=== PATIENT | male | born 1930 | race African-American/Black ===

== ENCOUNTER 2016-09-16 12:19 | Emergency (ER) | payer OTHER, MEDICARE, MEDICAID ==
[2016-09-16 12:54] VITALS: BP 128/49
--- NOTE | 2016-09-16 13:13 | EDM.PDOC ---
ED HPI GENERAL MEDICAL PROBLEM - General Chief Complaint: Lower Extremity Injury/Pain Stated Complaint: SENT [place] KNOCKED OVER BY HORSE Time Seen by Provider: 09/16/16 13:00 Source of Information: Reports: Patient History Limitations: Reports: No Limitations - History of Present Illness INITIAL COMMENTS - FREE TEXT/NARRATIVE: This 86 yo male patient was sent to the ED from the [place] (Dr. Nino Catalan from the [facility]) due to being run over by a horse. The patient reports he was feeding the horses when 1 of the horses ran over the patient on Tuesday. The patient has pain in his left forearm, left foot, left ankle and right scapula. The patient reports he has been taking Tylenol with little to no symptom relief. Onset Date: 09/14/16 Duration: Constant Location: Reports: Upper Extremity, Left, Upper Extremity, Right, Lower Extremity, Left Quality: Reports: Ache, Dull Severity: Moderate Improves with: Reports: None Worsens with: Reports: None Context: Reports: Trauma Associated Symptoms: Reports: No Other Symptoms Left Feet Pain Score (Numeric/FACES): 10 - Related Data Allergies Allergy/AdvReac Type Severity Reaction Status Date / Time gabapentin Allergy Cannot Verified 09/16/16 13:46 Remember levofloxacin [From Levaquin] Allergy Cannot Verified 09/16/16 13:46 Remember lovastatin Allergy Cannot Verified 09/16/16 13:46 Remember phenazopyridine Allergy Cannot Verified 09/16/16 13:46 [From Pyridium] Remember Home Meds: Home Meds Aspirin 81 mg PO BRK 09/16/16 [History] Clopidogrel Bisulfate [Clopidogrel] 75 mg PO DAILY 09/16/16 [History] Furosemide 40 mg PO DAILY 09/16/16 [History] Lisinopril 40 mg PO DAILY 09/16/16 [History] Loratadine 10 mg PO DAILY 09/16/16 [History] Miconazole [Miconazole 2% Crm] 1 applic TOP BID 09/16/16 [History] Multivitamin with Minerals [Hair, Skin and Nails] 1 tab PO DAILY 09/16/16 [ History] Pantoprazole Sodium 40 mg PO DAILY 09/16/16 [History] Triamcinolone Acetonide [Triamcinolone Acetonide 0.1% Oint] 1 applic TOP PRN [History] guaiFENesin [Mucus Relief] 600 mg PO BID 09/16/16 [History] Review of Systems - Review of Systems Review Of Systems: ROS reveals no pertinent complaints other than HPI. ED EXAM, GENERAL - Physical Exam Exam: See Below Exam Limited By: No Limitations General Appearance: Alert, WD/WN, Moderate Distress Eye Exam: Bilateral Eye: EOMI, Normal Inspection, PERRL Ears: Normal External Exam, Normal Canal, Hearing Grossly Normal, Normal TMs Nose: Normal Inspection Throat/Mouth: Normal Inspection, Normal Lips, Normal Teeth, Normal Gums, Normal Oropharynx, Normal Voice, No Airway Compromise Head: Atraumatic, Normocephalic Neck: Normal Inspection, Supple, Non-Tender, Full Range of Motion Respiratory/Chest: No Respiratory Distress, Lungs Clear, Normal Breath Sounds, No Accessory Muscle Use, Chest Non-Tender Cardiovascular: Normal Peripheral Pulses, Regular Rate, Rhythm, No Edema, No Gallop, No JVD, No Murmur, No Rub GI/Abdominal: Normal Bowel Sounds, Soft, Non-Tender, No Organomegaly, No Distention, No Abnormal Bruit, No Mass (Male) Exam: Deferred Rectal (Males) Exam: Deferred Back Exam: Normal Inspection, Full Range of Motion, NT Extremities: Arm Pain (left forearm and right posterior shoulder), Leg Pain ( left ankle, left foot) Neurological: Alert, Oriented, CN II-XII Intact, Normal Cognition, Abnormal Gait (due to left foot/ankle pain) Psychiatric: Normal Affect, Normal Mood Skin Exam: Warm, Dry, Intact, Normal Color, No Rash Lymphatic: No Adenopathy Course - Vital Signs Last Recorded V/S: Last Vital Signs Temp 36.4 C 09/16/16 12:53 Pulse 53 L 09/16/16 12:53 Resp 16 09/16/16 12:53 BP 128/49 L 09/16/16 12:53 Pulse Ox 100 09/16/16 12:53 - Orders/Labs/Meds Orders: Active Orders 24 hr Category Date Time Status DME for Discharge [COMM] Urgent Oth 09/16/16 14:39 Ordered Departure - Departure Time of Disposition: 14:40 Disposition: Home, Self-Care 01 Condition: Fair Clinical Impression: Left ankle strain Qualifiers: Encounter type: initial encounter Qualified Code(s): S96.912A - Strain of unspecified muscle and tendon at ankle and foot level, left foot, initial encounter Contusion of right scapula Qualifiers: Encounter type: initial encounter Qualified Code(s): S40.011A - Contusion of right shoulder, initial encounter Contusion of left forearm Qualifiers: Encounter type: initial encounter Qualified Code(s): S50.12XA - Contusion of left forearm, initial encounter - Discharge Information Instructions: Crutch Use, [id number], Ankle Sprain, Mffw-qm-Trip, Contusion, [id number] Forms: ED Department Discharge Care Plan Goals: The patient was advised of the examination and x-ray results during the visit. The patient was placed in a left ankle support and given a set of crutches. The patient was encouraged to rest, ice and elevate his left foot and ankle. If the patient has any additional symptoms or concerns, the patient should follow-up with his primary care facility or return to the emergency department. - My Orders Last 24 Hours: My Active Orders 09/16/16 14:39 DME for Discharge [COMM] Urgent - Assessment/Plan Last 24 Hours: My Active Orders 09/16/16 14:39 DME for Discharge [COMM] Urgent
--- NOTE | 2016-09-16 13:42 | CR ---
Clinical history: 86-year-old male "trampled" by horse. Interpretation: 3 views left foot confirm generalized mild osteopenia consistent with age and mild s oft tissue swelling. Mild hallux valgus with reactive arthritic changes first metatarsophalangeal joint.. No left foot fracture or dislocation. No foreign bodies.
--- NOTE | 2016-09-16 13:44 | CR ---
Clinical history: 86-year-old male injured when "trampled" by horse. Interpretation: Mild soft tissue swelling over the lateral malleolus and small ankle joint effusion (sprain). 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 Generalized osteopenia. No sign of acute left ankle fracture or disruption of the tibiotalar mortise joint symmetry.
--- NOTE | 2016-09-16 13:48 | CR ---
Clinical history: 86-year-old male "trampled" by horse. Interpretation: 2 views left forearm unremarkable i.e. negative. No sign of pathologic skeletal lesion, left radius/ulna fracture or dislocation of the left elbow or wrist. No foreign bodies.
--- NOTE | 2016-09-16 13:49 | CR ---
Clinical history: 86-year-old male injured when "trampled" by a horse. Interpretation: 2 views right scapula unremarkable i.e. no sign of scattered fracture, glenohumeral dislocation or appreciable separation acromioclavicular joint (some reactive arthritic changes). Rig ht lung apex clear. CONCLUSION: No fractures.
== END 2016-09-16 15:15 | disposition home or self-care (01) ==
LOC: DL.ED 12:19
DX: S96.912A Strain of unspecified muscle and tendon at ankle and foot level, left foot, initial encounter (principal); S50.12XA Contusion of left forearm, initial encounter; S40.011A Contusion of right shoulder, initial encounter; Z79.899 Other long term (current) drug therapy; Z79.02 Long term (current) use of antithrombotics/antiplatelets; Z79.82 Long term (current) use of aspirin; Z88.8 Allergy status to other drugs, medicaments and biological substances; W55.12XA Struck by horse, initial encounter; Y93.K9 Activity, other involving animal care
CPT/HCPCS: 73010-RT; 73090-LT; 73600-LT; 73630-LT; 99282; 99283